=== PATIENT | female | born 1945 | race Caucasian/White ===

== ENCOUNTER 2021-06-26 16:18 | Emergency (ER) | payer OTHER ==
[~2021-06-26] VITALS: Ht 162.6 cm; Wt 74.0 kg
[2021-06-26 16:33] VITALS: BP 138/64
--- NOTE | 2021-06-26 16:57 | PHYS DOC ---
Past History Past Surgical History: Tonsillectomy, Other Additional Past Surgical Histo: RIGHT SHOULDER, CATARACT, (KIKO LARRY DO) Alcohol Use: None (KIKO LARRY DO) General Adult EDM: Chief Complaint: MECHANICAL FALL HPI: HPI: 76-year-old female presents after falling down stairs. She started walking in her basement stairs or stepped on her shoelace and tumbled down about 10 stairs. She has pain in the right shoulder right elbow right wrist. She also knows that she bumped her head but denies headache. She was not knocked unconscious. She denies any neck pain. Denies vomiting. Patient has a history of total right shoulder replacement. (KIKO LARRY DO) Review of Systems: Review of Systems: Constitutional: Denies fever or chills Eyes: Denies change in visual acuity HENT: Denies nasal congestion or sore throat Respiratory: Denies cough or shortness of breath Cardiovascular: Denies chest pain or edema GI: Denies abdominal pain, nausea, vomiting, bloody stools or diarrhea : Denies dysuria Musculoskeletal: Right shoulder pain, elbow pain, wrist pain Integument: Denies rash Neurologic: Denies headache, focal weakness or sensory changes Endocrine: Denies polyuria or polydipsia Lymphatic: Denies swollen glands Psychiatric: Denies depression or anxiety (KIKO LARRY DO) Allergies: Allergies: Allergies Coded Allergies Type Severity Reaction Last Updated Verified Penicillins Allergy Unknown 06/26/21 Yes (KIKO LARRY DO) Physical Exam: PE: Constitutional: Well developed, well nourished, no acute distress, non-toxic appearance. [] HENT: Normocephalic, atraumatic, bilateral external ears normal, oropharynx moist, no oral exudates, nose normal. [] Eyes: PERRLA, EOMI, conjunctiva normal, no discharge. [] Neck: Normal range of motion, no tenderness, supple, no stridor. [] Cardiovascular: Heart rate regular rhythm, no murmur [] Lungs & Thorax: Bilateral breath sounds clear to auscultation [] Abdomen: Bowel sounds normal, soft, no tenderness, no masses, no pulsatile masses. [] Skin: Warm, dry, no erythema, no rash. [] Back: No tenderness, no CVA tenderness. [] Extremities: Pain right shoulder, right elbow, right wrist with no obvious deformity. [] Neurologic: Alert and oriented X 3, normal motor function, normal sensory function, no focal deficits noted. [] Psychologic: Affect normal, judgement normal, mood normal. [] (KIKO LARRY DO) Current Patient Data: Vital Signs: Vital Signs Date Time Temp Pulse Resp B/P (MAP) Pulse Ox O2 Delivery O2 Flow Rate FiO2 06/26/21 16:33 98.2 79 18 138/64 (88) 94 Room Air (KIKO LARRY DO) EKG: EKG: [] (KIKO LARRY DO) Radiology/Procedures: Radiology/Procedures: [] (KIKO LARRY DO) Radiology/Procedures: [place] [id number] IMAGING REPORT Signed PATIENT: VALARIE CUETO ACCOUNT: [id number] : 1945 LOCATION: ER AGE: 76 SEX: F EXAM STATUS: REG ER ORD. PHYSICIAN: KIKO LARRY DO REASON: fall, right sided head and neck pain PROCEDURE: CT HEAD AND CERVICAL SPINE WO EXAM: CT HEAD WITHOUT IV CONTRAST CLINICAL HISTORY: Reason: fall, right sided head and neck pain / Spl. Instructions: / History: l COMPARISON: None. TECHNIQUE: Routine CT of the head without contrast. Soft tissues and bone windows were reviewed. PQRS compliance statement - One or more of the following individualized dose reduction techniques were utilized for this study: 1. Automated exposure control 2. Adjustment of the mA and/or kV according to patient size 3. Use of iterative reconstruction technique FINDINGS: There is no evidence of hemorrhage, mass or extra-axial fluid collection. Tovar-white differentiation is maintained with no evidence of edema. There is no mass effect or shift of the intracranial structures. The ventricles, basilar cisterns and cortical sulci are normal in size and configuration for the patients stated age. The cerebellum and brainstem are unremarkable. The calvarium demonstrates no evidence of fracture or focal lesion. There is normal aeration of the visualized paranasal sinuses and mastoid air cells. The visualized portions of the orbits are normal. Scalp hematoma right posterior parietal region. IMPRESSION: No evidence for acute intracranial process. EXAM: CT CERVICAL SPINE WITHOUT IV CONTRAST CLINICAL HISTORY: Reason: fall, right sided head and neck pain / Spl. Instructions: / History: COMPARISON: None available. TECHNIQUE: Helical CT of the cervical spine was performed. Axial, coronal and sagittal reformatted images were also performed. PQRS compliance statement - One or more of the following individualized dose reduction techniques were utilized for this study: 1. Automated exposure control 2. Adjustment of the mA and/or kV according to patient size 3. Use of iterative reconstruction technique FINDINGS: Vertebral body heights are preserved. No acute cervical spine fracture No spondylolisthesis. Mild C2-3 severe C4-5, C5-6 and moderate C6-7 disc height loss. No spondylolisthesis. Posterior disc osteophyte complexes C4-5, C5-6 and C6 and m oderate to severe central canal stenosis, most prominent at C5-6. Fractures of the posterior right fourth and fifth ribs is partially profiled. No pneumothorax is seen in the limited visualized portion of the chest. IMPRESSION: 1. Negative acute cervical spine fracture or subluxation. 2. Acute fractures of the posterior right fourth and fifth ribs are partially profiled. 3. Multilevel spondylosis as above, most prominent at C5-6 with moderate to severe central canal stenosis. Electronically signed by: Mitchel Rodriguez MD (06/26/2021 5:43 PM) [facility] DICTATED AND SIGNED BY: MITCHEL RODRIGUEZ MD DATE: 06/26/211734 CC: KIKO LARRY DO; AMBER PIRES MD ~[facility] [address] [place], [place] [id number] IMAGING REPORT Signed PATIENT: VALARIE CUETO ACCOUNT: [id number] : 1945 LOCATION: ER AGE: 76 SEX: F EXAM STATUS: REG ER ORD. PHYSICIAN: KIKO LARRY DO REASON: fall; RT Shoulder pain PROCEDURE: SHOULDER 2+V RIGHT 3 views right elbow right shoulder and right wrist HISTORY: Pain status post fall 3 view radiographs: The visualized osseous structures appear normal. 3 views right elbow: Visualized osseous structures appear normal. Three views right shoulder Internally and externally rotated AP of shoulder obtained, as well as "Y" view. There has been right shoulder traverse across pelvis. The glenoid and humeral components are aligned and well seated. There is degenerative marginal spurring of the right AC joint. IMPRESSION: No acute findings. Electronically signed by: Christiano Grande III, MD (06/26/2021 6:06 PM) [facility] DICTATED AND SIGNED BY: CHRISTIANO GRANDE III, MD DATE: 06/26/211802 CC: KIKO LARRY DO; AMBER PIRES MD ~[facility] [address] [place] [address] IMAGING REPORT Signed PATIENT: VALARIE CUETO ACCOUNT: [id number] : 1945 LOCATION: ER AGE: 76 SEX: F EXAM STATUS: REG ER ORD. PHYSICIAN: KIKO LARRY DO REASON: fall; RT Wrist Pain PROCEDURE: WRIST 3V RIGHT 3 views right elbow right shoulder and right wrist HISTORY: Pain status post fall 3 view radiographs: The visualized osseous structures appear normal. 3 views right elbow: Visualized osseous structures appear normal. Three views right shoulder Internally and externally rotated AP of shoulder obtained, as well as "Y" view. There has been right shoulder traverse across pelvis. The glenoid and humeral components are aligned and well seated. There is degenerative marginal spurring of the right AC joint. IMPRESSION: No acute findings. Electronically signed by: Christiano Grande III, MD (06/26/2021 6:06 PM) [facility] DICTATED AND SIGNED BY: CHRISTIANO GRANDE III, MD DATE: 06/26/211802 CC: KIKO LARRY DO; AMBER PIRES MD ~[facility] 0 (CAITLYN ARROYO MD) Heart Score: C/O Chest Pain: N/A Risk Factors: Risk Factors: DM, Current or recent (<one month) smoker, HTN, HLP, family history of CAD, obesity. Risk Scores: Score 0 - 3: 2.5% MACE over next 6 weeks - Discharge Home Score 4 - 6: 20.3% MACE over next 6 weeks - Admit for Clinical Observation Score 7 - 10: 72.7% MACE over next 6 weeks - Early Invasive Strategies (KIKO LARRY DO) Course & Med Decision Making: Course & Med Decision Making Pertinent Labs and Imaging studies reviewed. (See chart for details) The patient's work-up is pending. 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 [] (KIKO LARRY DO) Course & Med Decision Making See Dr. Larry chart for details prior shift change. Ice packs as needed. Practice deep breathing. Tylenol and Ibuprofen for pain. Follow up with primary . Return if any concerns., Impression: 1. Fall on Stairs 2. Contusions 3. Sprain/ Strain 4. Rib fx Rt 4 and 5th (CAITLYN ARROYO MD) Dragon Disclaimer: Dragon Disclaimer: This electronic medical record was generated, in whole or in part, using a voice recognition dictation system. (KIKO LARRY DO) Departure Departure: Impression: Primary Impression: Fall down stairs Qualified Codes: W10.8XXA - Fall (on) (from) other stairs and steps, initial encounter Additional Impression: Arm pain Qualified Codes: M79.601 - Pain in right arm Disposition: 01 HOME / SELF CARE / HOMELESS Condition: STABLE Referrals: AMBER PIRES MD (PCP) Patient Instructions: Contusion, [id number] KIKO LARRY DO Jun 26, 2021 16:57 CAITLYN ARROYO MD Jun 26, 2021 18:33
--- NOTE | 2021-06-26 17:45 | RAD ---
EXAM: CT HEAD WITHOUT IV CONTRAST CLINICAL HISTORY: Reason: fall, right sided head and neck pain / Spl. Instructions: / History: l COMPARISON: None. TECHNIQUE: Routine CT of the head without contrast. Soft tissues and bone windows were reviewed. PQRS compliance statement - One or more of the following individualized dose reduction techniques wer e utilized for this study: 1. Automated exposure control 2. Adjustment of the mA and/or kV according to patient size 3. Use of iterative reconstruction technique FINDINGS: There is no evidence of hemorrhage, mass or extra-axial fluid collection. Tovar-white differentiation is maintained with no evidence of edema. There is no mass effect or shift of the intracranial structures. The ventricles, basilar cisterns and cortical sulci are normal in size and configuration for the sharif ents stated age. The cerebellum and brainstem are unremarkable. The calvarium demonstrates no evidence of fracture or focal lesion. There is normal aeration of the visualized paranasal sinuses and mastoid air cells. The visualized portions of the orbits are normal. Scalp hematoma right posterior parietal region. IMPRESSION: No evidence for acute intracranial process. EXAM: CT CERVICAL SPINE WITHOUT IV CONTRAST CLINICAL HISTORY: Reason: fall, right sided head and neck pain / Spl. Instructions: / History: COMPARISON: None available. TECHNIQUE: Helical CT of the cervical spine was performed. Axial, coronal and sagittal reformatted im ages were also performed. PQRS compliance statement - One or more of the following individualized dose reduction techniques wer e utilized for this study: 1. Automated exposure control 2. Adjustment of the mA and/or kV according to patient size 3. Use of iterative reconstruction technique FINDINGS: Vertebral body heights are preserved. No acute cervical spine fracture No spondylolisthesis. Mild C2-3 severe C4-5, C5-6 and moderate C6-7 disc height loss. No spondylolisthesis. Posterior disc osteophyte complexes C4-5, C5-6 and C6 and moderate to severe central canal stenosis, most prominent at C5-6. Fractures of the posterior right fourth and fifth ribs is partially profiled. No pneumothorax is seen in the limited visualized portion of the chest. IMPRESSION: 1. Negative acute cervical spine fracture or subluxation. 2. Acute fractures of the posterior right fourth and fifth ribs are partially profiled. 3. Multilevel spondylosis as above, most prominent at C5-6 with moderate to severe central canal jose miguel nosis. Electronically signed by: Mitchel Calderon MD (06/26/2021 5:43 PM) [facility]
--- NOTE | 2021-06-26 18:09 | RAD ---
3 views right elbow right shoulder and right wrist HISTORY: Pain status post fall 3 view radiographs: The visualized osseous structures appear normal. 3 views right elbow: Visualized osseous structures appear normal. Three views right shoulder Internally and externally rotated AP of shoulder obtained, as well as "Y" view. There has been right shoulder traverse across pelvis. The glenoid and humeral components are aligned and well seated. There is degenerative marginal spurring of the right AC joint. IMPRESSION: No acute findings. Electronically signed by: Dutch Rees III, MD (06/26/2021 6:06 PM) [facility]
[2021-06-26] MEDS ORDERED: MORPHINE SULFATE 10 MG/ML SYRINGE. ONE (18:37)
[2021-06-26] MEDS ORDERED: MORPHINE SULFATE 10 MG/ML SYRINGE. SQ ONE (18:45)
== END 2021-06-26 19:02 | disposition home or self-care (01) ==
LOC: ER 16:18
DX: M25.511 Pain in right shoulder (principal); M79.601 Pain in right arm; Z88.0 Allergy status to penicillin; W10.8XXA Fall (on) (from) other stairs and steps, initial encounter; Y93.89 Activity, other specified; Y92.89 Other specified places as the place of occurrence of the external cause; Y99.8 Other external cause status
CPT/HCPCS: 70450; 72125; 73030; 73080; 73110; 96372; 99284; G0238; J2270

== ENCOUNTER → 2021-07-17 | Outpatient (CLI) | payer OTHER ==
[2021-06-26 16:33] VITALS: BP 138/64
--- NOTE | 2021-07-17 14:17 | RAD ---
Exam Date: 07/17/2021 10:40 AM XR RT WRIST [id number] Indication: Reason: STILL HAVING PAIN S/P FALL / Spl. Instructions: / History: . COMPARISON: June 26, 2021 FINDINGS/ IMPRESSION: No acute fracture or dislocation. Moderate degenerative changes are again seen. Alignment is mainta ined. The soft tissues are within normal limits. Electronically signed by: Randy Martel MD (07/17/2021 2:15 PM) [id number]
== END ==
LOC: RAD 10:34
PROVIDERS: ATTEND Family Medicine
DX: S69.91XA Unspecified injury of right wrist, hand and finger(s), initial encounter (principal); M19.031 Primary osteoarthritis, right wrist; X58.XXXA Exposure to other specified factors, initial encounter; Y93.89 Activity, other specified; Y92.89 Other specified places as the place of occurrence of the external cause; Y99.8 Other external cause status
CPT/HCPCS: 73110